=== PATIENT | female | born 1985 | race Caucasian/White ===

== ENCOUNTER 2023-02-16 08:54 | Outpatient (CLI) | payer OTHER, SELFPAY ==
[2023-02-16 09:55] LABS: Basophils Absolute Auto 0.02 K/uL (0.00-0.30); Basophils Percent Auto 0.2 % (0.0-3.0); Eosinophils Percent Auto 1.2 % (0.0-7.0); Hematocrit 44.1 % (33.0-51.0); Hemoglobin* 14.4 gm/dL (12.0-16.0); Immature Granulocytes Abs Auto 0.01 K/uL (0.00-0.30); Immature Granulocytes Pct Auto 0.1 %; Lymphocytes Absolute Auto 2.81 K/uL (0.90-2.90); Lymphocytes Percent Auto 32.8 % (20-44); Mean Corpuscular HGB Conc 33 gm/dL (32-36); Mean Corpuscular Hemoglobin 29 pg (26-34); Mean Corpuscular Volume 88 fL (80-100); Monocytes Percent Auto 8.6 % (0.0-11.0); Neutrophils Absolute Auto 4.88 K/uL (1.7-7.0); Neutrophils Percent Auto 57.1 % (42.0-72.0); Platelet Count* 329 K/uL (140-440); RDW Coefficient of Variation % 12.5 % (11.5-15.5); Red Blood Count 4.99 m/uL (4.00-5.20); White Blood Count* 8.56 K/uL (4.50-11.00)
[2023-02-16 10:22] LABS: Cholesterol* 188 mg/dL (90-199); Slide Review Reflex No; Triglycerides* 77 mg/dL (40-149)
[2023-02-16 10:23] LABS: HDL Cholesterol* 43 mg/dL (>=50); LDL Cholesterol Calculated 130 mg/dL (<100)
[2023-02-16 10:39] LABS: Vitamin D 25 Hydroxy* 41 ng/mL (30-80)
[2023-02-16 10:41] LABS: Free T4 Free Thyroxine* 1.06 ng/dL (0.70-1.85)
[2023-02-16 10:59] LABS: Ferritin* 89.8 ng/mL (6.24-137.0)
[2023-02-16 11:12] LABS: Vitamin B12* 516 pg/mL (243-894)
[2023-02-17 16:54] LABS: Thyroid Peroxidase (TPO) Ab 1.9 IU/mL (0.0-9.0)
[2023-02-17 16:56] LABS: Estradiol Premenol Female 131 pg/mL
[2023-02-17 21:07] LABS: Luteinizing Hormone, Serum 3.6 IU/L; Sex Hormone Binding Globulin 29 nmol/L (25-122)
[2023-02-17 21:31] LABS: CRP, High Sensitivity 2.3 mg/L (<=3.0)
[2023-02-17 21:50] LABS: Free T3 3.3 pg/mL (2.5-4.3)
[2023-02-17 22:00] LABS: Prolactin 5.3 ng/mL (2.8-29.2)
== END 2023-02-16 08:55 | disposition home or self-care (01) ==
DX: E63.9 Nutritional deficiency, unspecified (principal); E66.9 Obesity, unspecified; G43.909 Migraine, unspecified, not intractable, without status migrainosus; N84.1 Polyp of cervix uteri; R53.83 Other fatigue
CPT/HCPCS: 36415; 80061; 82306; 82607; 82670; 82728; 83001; 83002; 84146; 84270; 84402; 84403; 84439; 84443; 84481; 85025; 86141; 86376

== ENCOUNTER 2025-05-29 05:12 | Day surgery (SDC) | payer OTHER, SELFPAY ==
[2025-05-29] VITALS (19 sets, daily range): BP systolic 107–131; BP diastolic 55–78; PULSE 59–80; RESP 16; TEMP 36.5–37.3; O2SAT 95–100; BMI 34.9; BMI 36.3
--- OUTSIDE RECORDS SUMMARY | 2025-05-29 05:13 | XMS_ITS | Clinical Summary ---
Author Organization [facility] Address [address] [place] [id number] Care Team Providers Care Passenger Coach Driver Name Role Phone Physicians, Maria R Cristina Family Primary Care Prov ider Jeri Contreras PA-C Unavailable [phone] Allergies Active Allergy Reactions Criticality Noted Date Comments Sulfa Antibiotics Other (See Comments) 10/03/20 12 Medications levonorgestrel (MIRENA) 20 MCG/DAY IUDIndications:En counter for insertion of intrauterine contraceptive device 1 each (20 mcg) by Intrauterine route once Active magnesium 250 MG tablet Take 1 tablet by mouth daily Active Yfnroq-0-Gpxzagdi POWD Active L-Theanine 100 MG CAPS Active Probiotic Product (PROBIOTIC BLEND PO) Active Active Problems Problem Noted Date Diagnosed Date Dysplasia of cervix, low grade (DAMON 1) Overview (05/11/2023): 01/2021 NIL pap, + HR HPV 05/05/21 [place] Bx: suggestive of but not diagnostic for DAMON 1 05/07/22 NIL pap, + HR HPV (not 16/18). Plan colp bef 08/07/22 07/05/22 [place] Bx: DAMON 1, ECC: benign. Plan 1 year cotest 05/03/23 NIL pap, neg HR HPV. Plan 3 year cotest Cervical high risk HPV (human papillomavirus) te st positive Immunizations Immunization Administration Dates Next Due COVID-19 MONOVALENT 12+ (InvestingNote) 10/06/2021,05/2021,03/10/2021 Influenza Vaccine >6 months,quad, PF 07/29/2020 TDAP (Adacel,Boostrix) 11/10/2020,10/10/2014 Family History Medical History Relation Comments Heart Disease Father Hyperlipidemia Father Hypertension Father Heart Disease Maternal Grandfather Hyperlipidemia Maternal Grandfather Breast Cancer Maternal Grandmother Hyperlipidemia Maternal Grandmother Heart Disease Mother Hyperlipidemia Mother Hypertension Mother Breast Cancer Paternal Grandmother Heart Disease Paternal Grandmother Hyperlipidemia Paternal Grandmother Relation Status Comments Father Maternal Grandfather Maternal Grandmother Mother Paternal Grandmother Social History Tobacco Use Types Packs/Day Years Used Date Smoking Tobacco: Never Smokeless Tobacco: Never Tobacco Cessation:Counseling Given: Not Answered Alcohol Use Standard Drinks/Week Comments Yes 0 (1 standard drink = 0.6 oz pur e alcohol) rarely PHQ-2 Answer Date Recorded PHQ-2 Score 2 05/04/2024 Adolescent Education Answer Date Record ed Getting School Help Needed Not on file 08/05 Comments No Sex and Gender Information Value Date Recorded Sex Assigned at Female 05/02/2023 9:27 AM CDT 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 Gender Identity Female 05/02/2023 9:27 AM CDT Sexual Orientation Straight 05/02/2023 9: 27 AM CDT Last Filed Vital Signs Vital Sign Reading Time Taken Comments Blood Pressure 117/70 05/04/2024 9:07 AM CDT Pulse - - Temperature - - Respiratory Rate - - Oxygen Saturation - - Inhaled Oxygen Concentration - - Weight 94.1 kg (207 lb 6.4 oz) 05/04/2024 9:07 A M CDT Height 166.4 cm (5' 5.5) 05/04/2024 9:07 AM CDT Body Mass Index 33.99 05/04/2024 9:07 AM CDT Plan of Treatment Health Maintenance Due Date Last Done Comments ADVANCE CARE PLANNING 1985 ANNUAL REVIEW OF HM ORDERS 1985 DIABETES SCREENING 1985 HIV SCREENING 01/18/2000 HEPATITIS C SCREENING 2003 HEPATITIS B VACCINE (1 of 3 - 19+ 3-dose series) 01/18/2004 COVID-19 VACCINE ( season) 2024 10/06/2021, 03/31/2021, 03/10/2021 PHQ-2 (once per calendar year) 2024 05/04/2024, 03/22/2024, 03/22/2024, Additional history exists MAMMO SCREENING 04/03/2025 04/03/2024, 11/28/2015 YEARLY PREVENTIVE VISIT 05/04/2025 05/04/20 24, 05/03/2023, 05/07/2022 INFLUENZA VACCINE (#1) 2025 07/29/2020 HPV FOLLOW-UP 05/03/2026 05/03/2023, 05/07/2022 PAP FOLLOW-UP 05/03/2026 05/03/2023, 04/23, 02/13/2021 LIPID 02/17/2028 02/16/2023 DTAP/TDAP/TD VACCINE (3 - Td or Tdap) 11/10/2030 11/10/2020, 10/10/2014 ZOSTER VACCINE (1 of 2) 2035 PAP Discontinued 05/03/2023, 04/23, 02/13/2021 HPV VACCINE (No Doses Required) Completed MENINGITIS VACCINE Aged Out No longer eligible based on patient's age to complete this topic PNEUMOCOCCAL VACCINE: PEDIATRICS (0 to 5 YEARS) AND AT-RISK PATIENTS (6 to 49 YEARS) Aged Out No longer eligible based on patient's age to complete this topic Procedures Procedure Name Priority Date/Time Associated Diagnosis Comments MA DIAGNOSTIC BILATERAL W/ SP Routine 04/03/2024 1:49 PM CDT Breast pain, left HPV HIGH RISK TYPES DNA CERVICAL Routine 05/03/2023 9:04 AM CDT Encounter for gynecological examination without abnormal finding GYNECOLOGIC CYTOLOGY Routine 05/03/2023 9:04 AM CDT Encounter for gynecological examination without abnormal finding LIPID PANEL (EXTERNAL RESULT) Routine 02/16/2023 9:20 AM CDT from Last 3 Months or Most Recently Relevant to Health Maintenance Results * MA Diagnostic Bilateral w/Sp (04/03/2024 1:49 PM CDT) Anatomical Region Laterality Modality Breast Bilateral Mammography Impressions 04/03/2024 2:11 PM CDT IMPRESSION: BI-RADS CATEGORY: 1 - Negative. RECOMMENDED FOLLOW-UP: Routine yearly mammography beginning at age 40 or as discussed with your provider. LYDIA HOLDER MD Narrative 04/03/2024 2:11 PM CDT EXAM: MA DIAGNOSTIC BILATERAL W/ SP, US BREAST LEFT LIMITED 1-3 QUADRANTS, 04/03/2024 1:49 PM COMPARISONS: 11/28/2015 HISTORY: Pain laterally in the LEFT breast. BREAST DENSITY: The breasts are heterogeneously dense which may obscure small masses. FINDINGS: Bilateral mammography with digital breast tomosynthesis performed with a square-shaped marker in the upper outer LEFT breast at the patient's area of concern. No concerning mammographic/tomographic findings on either side. Focussed ultrasound of the upper outer quadrant of the LEFT breast was performed. No concerning findings identified. us Jeri Contreras PA-C IMG MAMMOGRAPHY ORDERABL ES Final Result * Pap thin layer screen with HPV - recommended age 30 - 65 years (05/03/2023 9:04 AM CDT) Interpretation Negative for Intraepithelial Lesion or Malignancy (NILM) 05/09/2023 8:00 AM CDT [facility] at 0800 CDT Comment Papanicolaou Test Limitations: Cervical cytology is a screening test with limited sensitivity, and regular screening is critical for cancer prevention. Pap tests are primarily effective for the diagnosis/prevent ion of squamous cell carcinoma, not adenocarcinoma or other cancers. 05/09/2023 8:00 AM CDT [facility] Specimen Adequacy Satisfactory for evaluation, endocervical/rich sformation zone component absent 05/09/2023 8:00 AM CDT [facility] Clinical Information IUD 05/09/2023 8:00 AM CDT [facility] Reflex Testing Yes regardless of result 05/09/2023 8:00 AM CDT [facility] Previous Abnormal? Yes 05/09/2023 8:00 AM CDT [facility] Previous Abnormal Diagnosis HRHPV + 05/09/2023 8:00 AM CDT [facility] Performing Labs The technical component of this testing was completed at [facility] 05/09/2023 8:00 AM CDT [facility] Brushing CERVIX UTERI STRUCTURE / Unknown Non-blood Collection / Unknown 05/03/2023 9:04 AM CDT 05/03/2023 10:17 AM CDT us Pamela BRUCE - GRIS AP Final Result [facility] [address] [facility], [address] [place] [id number], [facility] [phone] * HPV High Risk Types DNA Cervical (05/03/2023 9:04 AM CDT) Other HR HPV Negative Negative 05/10/2023 6:33 AM CDT [facility] HPV16 DNA Negative Negative 05/10/2023 6:33 AM CDT [facility] HPV18 DNA Negative Negative 05/10/2023 6:33 AM CDT [facility] FINAL DIAGNOSIS This patient's sample is negative for HPV DNA. This test was developed and its performance characteristics determined by the [facility], [facility]. It has not been cleared or approved by the FDA. The laboratory is regulated under CLIA as qualified to perform high-complexity testing. This test is used for clinical purposes. It should not be regarded as investigational or for research. METHODOLOGY: The Dom Marcie 4800 system uses automated extraction, simultaneous amplification of HPV (L1 region) and beta-globin, followed by real time detection of fluorescent labeled HPV and beta globin using specific oligonucleotide probes. The test specifically identifies types HPV 16 DNA and HPV 18 DNA while concurrently detecting the rest of the high risk types (31, 33, 35, 39, 45, 51, 52, 56, 58, 59, 66 or 68). COMMENTS: This test is not intended for use as a screening device for woman under age 30 with normal cervical cytology. Results should be correlated with cytologic and histologic findings. Close clinical followup is recommended. 05/10/2023 6:33 AM CDT [facility] Brushing CERVIX UTERI STRUCTURE / Unknown Non-blood Collection / Unknown 05/03/2023 9:04 AM CDT 05/09/2023 10:30 AM CDT us Pamela Aleman MD LAB - BLOOD ORDERABLES Final Res ult [facility] [address] [facility], [address] [id number], [facility] [phone] * (ABNORMAL) Lipid Panel (External Result) (02/16/2023 9:20 AM CDT) Cholesterol (External) 188 90 - 199 mg/dL [facility] Triglycerides (External) 77 40 - 149 mg/dL [facility] HDL Cholesterol (External) 43(A) >=50 mg/dL [facility] LDL Cholesterol Calculated (External) 130(A) <100 mg/dL [facility] Blood 02/16/2023 9:20 AM CDT Narrative [facility] - 02/16/2023 9:20 AM CDT [facility] RESULT us Provider Outside LAB - HIM EXTERNAL RESULT Final Result Performing Organization Address City/[facility]/ZIP Co de Phone Number [facility] [address] [place] [address], [facility] [phone] from Last 3 Months or Most Recently Relevant to Health Maintenance Insurance [employer] Care Teams Passenger Coach Driver Relationship Specialty Start Date End Date Physicians, Maria R Vinson. Family [address] [place] [address] PCP - General 11/24/15 Jeri Contreras, PAGuerdaC [address] [facility] [address] [place] [address] Assigned OBGYN Provider 05/15/25
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
--- NOTE | 2025-05-29 05:37 | CRLHL7_ITS ---
For Patients: As a result of the Century Cures Act, medical imaging exams and procedure reports are released immediately into your electronic medical record. You may view this report before your referring provider. If you have questions, please contact your health care provider. INDICATION: Abdominal pain and nausea COMPARISON: None TECHNIQUE: CT examination of the abdomen and pelvis was performed following the uneventful intravenous administration of 103 cc of Isovue 370. Thin section axial images were obtained from the lung bases through the pubic symphysis. Oral contrast was not administered. Please note that all CT scans at this facility use dose modulation, iterative reconstruction, and/or weight-based dosing when appropriate to reduce radiation dose to as low as reasonably achievable. FINDINGS: LUNG BASES: The lung bases as visualized appear normal.The heart size is normal at the lung bases. LIVER/BILIARY SYSTEM:The liver is normal in size and configuration. There is no focal mass and there is no intra- or extra hepatic biliary ductal dilatation.Hepatic steatosis. There is cholelithiasis. The gallbladder is distended and there may be wall thickening. Correlate with sonography. ADRENALS: Normal KIDNEYS, URETERS and BLADDER:The kidneys appear normal. No visible mass, calculus or hydronephrosis. The ureters and bladder as visualized appear normal. SPLEEN:Normal appearance. PANCREAS: Appears normal. RETROPERITONEUM and MESENTERY: There is no mass, adenopathy or aortic aneurysm. GASTROINTESTINAL SYSTEM: There is no evidence of diverticulitis, colitis, mechanical obstruction, or appendicitis. The small bowel as visualized appears normal. PELVIS: An IUD is noted but is malpositioned. The side arms are probably imbedded within the myometrium the lower uterine segment and the shank is probably imbedded in the endocervical canal. Follow-up evaluation is advised OSSEOUS STRUCTURES and ABDOMINAL WALL: There is an age-appropriate appearance of the osseous structures.No significant abdominal wall defect. OTHER: No free fluid or free air. IMPRESSION: 1. Cholelithiasis and distended gallbladder with possible wall thickening. Recommend sonography to exclude developing acute cholecystitis. 2. Malpositioned IUD as above. Please note that all CT scans at this facility use dose modulation, iterative reconstruction, and/or weight-based dosing when appropriate to reduce radiation dose to as low as reasonably achievable. Dictated by Blanco Chiu MD @ 05/29/2025 6:33:16 AM (Electronically Signed)
[2025-05-29] MEDS: ONDANSETRON 2 MG/ML inj 4 MG IVP (05:57)
[2025-05-29 06:02] LABS: Appearance Urine Cloudy (Clear)
[2025-05-29 06:11] LABS: Ur HCG Qualitative* Negative (Negative)
[2025-05-29 06:19] LABS: Hematocrit 41.0 % (33.0-51.0); Hemoglobin* 13.5 gm/dL (12.0-16.0); Immature Granulocytes Abs Auto 0.04 K/uL (0.00-0.30); Immature Granulocytes Pct Auto 0.4 %; Lymphocytes Absolute Auto 3.21 K/uL (0.90-2.90); Mean Corpuscular HGB Conc 33 gm/dL (32-36); Mean Corpuscular Hemoglobin 29 pg (26-34); Mean Corpuscular Volume 87 fL (80-100); RDW Coefficient of Variation % 12.4 % (11.5-15.5); Red Blood Count 4.69 m/uL (4.00-5.20); White Blood Count* 10.75 K/uL (4.50-11.00)
[2025-05-29 06:21] LABS: Slide Review Reflex No
[2025-05-29 06:35] LABS: Albumin* 4.0 g/dL (3.3-5.0); Chloride* 106 mmol/L (96-114); Potassium* 3.8 mmol/L (3.6-5.1); Sodium* 135 mmol/L (135-149)
[2025-05-29 06:38] LABS: Alanine Aminotransferase* 24 U/L (4-35); Alkaline Phosphatase* 88 U/L (40-150); Anion Gap 7 mEq/L (7-15); Aspartate Amino Transferase* 23 U/L (12-35); Bilirubin Total* 0.4 mg/dL (0.1-1.5); Blood Urea Nitrogen* 9 mg/dL (5-24); Calcium* 9.6 mg/dL (8.4-10.6); Carbon Dioxide* 22 mmol/L (20-32); Creatinine* 0.6 mg/dL (0.5-1.5); Est. Creatinine Clearance* 112.15; Estimated Glomerular Filt Rate 116 ml/min; Glucose* 104 mg/dL (60-115); Total Protein* 7.1 g/dL (6.0-8.3)
--- NOTE | 2025-05-29 06:55 | CRLHL7_ITS ---
For Patients: As a result of the Century Cures Act, medical imaging exams and procedure reports are released immediately into your electronic medical record. You may view this report before your referring provider. If you have questions, please contact your health care provider. Indication: Abdominal pain and nausea TECHNIQUE: Ultrasound abdomen limited. Sonographic images of the right upper quadrant were obtained using herrnig-scale and color Doppler images. Comparison: Abdomen and pelvis CT 05/29/2025 FINDINGS: Gallbladder: Cholelithiasis with nonmobile stones at the gallbladder neck. Distended gallbladder although without gallbladder wall thickening or pericholecystic fluid. Negative sonographic Winter`s sign.. Common bile duct: 4 mm. Impression: Cholelithiasis with non mobile stone at the gallbladder neck although without sonographic evidence of cholecystitis. With a non mobile stone at the gallbladder neck, HIDA scan could be considered to assess for cystic duct obstruction. Dictated by Angel Luis Paulson MD @ 05/29/2025 7:25:31 AM (Electronically Signed)
[2025-05-29] MEDS: LACTATED RINGERS 1000 ML 1,000 ML 125 ML IV ×2 (09:28→16:35)
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
[2025-05-29] MEDS: ONDANSETRON 2 MG/ML inj IVP (18:23)
[2025-05-29] MEDS: ACETAMINOPHEN 325 MG TABLET 650 MG PO (18:23)
--- NOTE | 2025-05-29 19:40 | PC.NURSE ---
End of shift-- Very pleasant and cooperative, alert and oriented patient. VSS and pt is afebrile. Pain appears well managed with Dilaudid PRN. Pt is tolerating a clear liquid diet, but did c/o nausea this evening and was given Zofran once. She was up independently and tolerated it well. and son were at bedside this evening and appear loving and supportive. Report to FRANCHESKA Narayanan.
[2025-05-30] VITALS (15 sets, daily range): BP systolic 94–133; BP diastolic 57–81; PULSE 60–89; RESP 13–20; TEMP 36.4–36.8; O2SAT 94–100
[2025-05-30] MEDS: LACTATED RINGERS 1000 ML 1,000 ML 125 ML IV ×2 (00:31→08:17)
--- NOTE | 2025-05-30 04:28 | PC.NURSE ---
Shift note: Patient is alert and oriented. Vitally stable. NPO for the night. Pain level has been moderate, rated at 3 and 4. Pt preferred recliner to bed for sleep. Refused SCD. Zofran given for nausea. Patient had adequate sleep. [place] in room.
--- NOTE | 2025-05-30 09:40 | PM.GSPN ---
Subjective Subjective Date Seen: 05/30/25 Interval history: Maria C is doing well today. She did have some pain overnight and some nausea as well as a headache. No questions about surgery today. Exam Narrative: Exam Narrative: Vital signs stable. No acute distress. Const: Vital Signs, click to edit/add: Vital Signs - 24 hr 05/29/25 10:54 05/29/25 15:00 05/29/25 15:00 Temperature 97.7 F 97.9 F Pulse Rate [Pulse Oximeter] 65 76 Respiratory Rate 16 16 16 Blood Pressure [Ri ght Arm] 113/64 120/78 Pulse Oximetry 98 99 100 Oxygen Delivery Me thod Room Air Room Air Room Air 05/29/25 15:00 05/29/25 19:00 05/29/25 22:44 Temperature 98.8 F Pulse Rate [Pulse Oximeter] 76 80 62 Respiratory Rate 16 16 16 Blood Pressure [Ri ght Arm] 122/64 Pulse Oximetry 98 Oxygen Delivery Me thod Room Air 05/29/25 22:44 05/29/25 22:44 05/30/25 02:49 Temperature 99.1 F 98.3 F Pulse Rate [Pulse Oximeter] 62 69 Respiratory Rate 16 16 16 Blood Pressure [Ri ght Arm] 108/69 111/63 Pulse Oximetry 98 98 95 Oxygen Delivery Me thod Room Air Room Air Room Air 05/30/25 08:12 Temperature 97.9 F Pulse Rate [Pulse Oximeter] 68 Respiratory Rate 16 Blood Pressure [Ri ght Arm] 113/60 Pulse Oximetry 99 Oxygen Delivery Me thod Room Air Progress Note:A&P Assessment and plan (1) Cholecystitis: Status: Acute Plan Plan for cholecystectomy today. All patient's questions answered. Likely discharge home through same-day surgery as long as there are no concerning intraoperative findings and as long as patient is doing well in recovery.
--- NOTE | 2025-05-30 09:43 | PM.GSPRC ---
Operative Note Date of procedure: 05/30/25 Pre-op diagnosis: Cholecystitis Post-op diagnosis: Same Type of Procedure: Laparoscopic cholecystectomy Indications: The patient is a 40-year-old female who presented to the emergency department with right upper quadrant pain which had been going on for approximately 1 day. Workup revealed a gallstone impacted in the gallbladder neck. She had no evidence of biliary obstruction. I recommended cholecystectomy. After discussion of risks and benefits she agreed to proceed. Procedure Description: After discussing the risks and benefits of the procedure, the patient signed informed consent.? The operative site was marked and the patient was brought to the operating room and placed on the operating table in supine position.? Care was taken to pad the patient's pressure points.?? The patient was then intubated by anesthesia.?? The operative site was then prepped and draped in the usual sterile fashion.? A time-out was then performed. Entrance to the abdomen was gained via a 5 mm Visiport in the left upper quadrant. The abdomen was insufflated and briefly surveyed for signs of injury. There was none. A 10 mm umbilical port was placed as well as 2 working ports along the right costal margin, all under direct vision. The patient was then placed in reverse Trendelenburg position with the right side up. The gallbladder fundus was grasped and retracted cephalad. A small amount of dissection was needed to free omental adhesions from the gallbladder. The gallbladder was noted to be edematous. The infundibulum was grasped. A stone was embedded in the gallbladder neck. A combination of hook cautery and blunt dissection was used to carefully dissect out the cystic duct and artery until they could clearly be seen entering the gallbladder without any intervening structures. The gallbladder was dissected off the cystic plate to achieve the critical view. Once this was achieved the cystic duct and artery were each clipped with 2 clips on the patient's side and 1 clip on the the gallbladder side and transected with the scissors. The gallbladder was then taken off of the liver bed. A small vessel encountered going into the gallbladder was clipped preemptively and divided with cautery. The gallbladder was then removed from the abdomen using an Endo-Catch bag. The gallbladder bed was surveyed for hemostasis which appeared adequate. The remaining ports were then removed and the abdomen desufflated. The umbilical port fascia was closed with 0 Vicryl. The skin was closed with absorbable subcuticular suture. Sterile dressings were then applied. Instrument sponge and needle counts were correct at the end of the case. The patient was then woken and transferred to the PACU in stable condition. The patient tolerated the procedure well. Findings: Edematous, distended gallbladder with a stone impacted in the gallbladder neck Anesthesia: GETA Surgeon: Rosario Walters MD Estimated blood loss (mL): 10 Specimen: Gallbladder Condition: stable Disposition: PACU
[2025-05-30] MEDS: BUPIVACAINE 0.25% 30 ML INJECTION (10:38)
--- NOTE | 2025-05-30 11:05 | P.ANES_ITS ---
Anesthesia Charges Start Date/Time Anesthesia Start Date: 05/30/25 Anesthesia Start Time: 09:34 Stop Date/Time Anesthesia Stop Date: 05/30/25 Anesthesia Stop Time: 10:59 Coding CPT Codes CPT Codes: ANESTH SURG UPPER ABDOMEN - 21486 ([id number]) P2 - PATIENT W/MILD SYST DISEASE, QX - ELECTRICAL MAINTENANCE ENGINEER SVC W/ MD MED DIRECTION, QK - DIRECTOR [facility] 2-4 CNCRNT ANES PROC
--- NOTE | 2025-05-30 11:05 | W.ANESCHARGE ---
Anesthesia Charges Start Date/Time Anesthesia Start Date: 05/30/25 Anesthesia Start Time: 09:34 Stop Date/Time Anesthesia Stop Date: 05/30/25 Anesthesia Stop Time: 10:59 Coding CPT Codes CPT Codes: ANESTH SURG UPPER ABDOMEN - 53689 ([id number]) P2 - PATIENT W/MILD SYST DISEASE, QX - [employer] SOFTWARE DEVELOPMENT ENGINEER SVC W/ MD MED DIRECTION, QK - DRILLING FIELD OPERATOR 2-4 CNCRNT ANES PROC
--- NOTE | 2025-05-30 11:58 | P.ANES_ITS ---
Anesthesia Charges Start Date/Time Anesthesia Start Date: 05/30/25 Anesthesia Start Time: 09:34 Stop Date/Time Anesthesia Stop Date: 05/30/25 Anesthesia Stop Time: 10:59 Coding CPT Codes CPT Codes: ANESTH SURG UPPER ABDOMEN - 02380 ([id number]) QK - REST ROOM MAID 2-4 CNCRNT ANES PROC, QX - FACTORY FOCUS TECHNICIAN SVC W/ MD MED DIRECTION, P2 - PATIENT W/MILD SYST DISEASE
--- NOTE | 2025-05-30 11:58 | W.ANESCHARGE ---
Anesthesia Charges Start Date/Time Anesthesia Start Date: 05/30/25 Anesthesia Start Time: 09:34 Stop Date/Time Anesthesia Stop Date: 05/30/25 Anesthesia Stop Time: 10:59 Coding CPT Codes CPT Codes: ANESTH SURG UPPER ABDOMEN - 75571 ([id number]) QK - TOP LIFT AND AUTOMATIC WINDOW REPAIRER 2-4 CNCRNT ANES PROC, QX - LICENSED SALES ASSISTANT SVC W/ MD MED DIRECTION, P2 - PATIENT W/MILD SYST DISEASE
--- NOTE | 2025-05-30 12:00 | PC.NURSE ---
Pt was well this morning. VSS. Abdominal pain denied. Ice was effective for pt's headache. Pt resting well in chair. at bedside. Surgical team assisted pt off floor at approximately 1000
--- NOTE | 2025-05-30 13:05 | SUR.PHASEII ---
Patient has tolerated water, juice and soda, eaten 4 pieces of toast. She was up in chair for 30 minutes and ready to go home. Pain is controlled with no additional medication given in Phase II.
== END 2025-05-30 13:13 | disposition home or self-care (01) ==
LOC: ED 10:03 → OR 10:12 → MEDSURG 10:12
PROVIDERS: Emergency Provider Emergency Medicine; Visit Provider Surgery
PROC: 0FT44ZZ Resection of Gallbladder, Percutaneous Endoscopic Approach (ICD-10-PCS; CPT 47562; principal; 2025-05-30 10:00)
DX: K80.01 Calculus of gallbladder with acute cholecystitis with obstruction (principal); R10.11 Right upper quadrant pain
CPT/HCPCS: 47562; 00790; 36415; 74177; 76705; 80053; 81001; 81025; 83690; 84703; 85025; 87086; 88304; 99285; A9270; J0330; J0665; J0690; J1100; J1171; J1885; J2250; J2405; J2704; J2710; J3010; J7030; J7120; Q9967

== ENCOUNTER 2025-10-06 16:00 | Emergency (ER) | payer OTHER, SELFPAY ==
--- OUTSIDE RECORDS SUMMARY | 2025-08-29 09:00 | XMS_ITS | Encounter Summary ---
Author Organization [facility] er Address [address] [place] [address] Care Team Providers Care Rn Perinatal Name Role Phone None, Pcp Primary Care Provider Unavailabl e Reason for Referral * Consultation (Routine) - AuthorizedSpecialtyDiagnoses / ProceduresReferred By ContactReferred To ContactSleep Medicine Diagnoses KIM (obstructive sleep apnea) Obesity hypoventilation syndrome (HCC) [place] [address] [place] [address] Phone: tel: fax: Referral IDStatusReasonStart DateExpiration DateVisits RequestedVisits [id number] Specialty Services Required TAIN WORKER Reason for Visit * ReasonCommentsConsultSleeping ProblemIssues with getting and staying a sleep SnoringFatigueExcessive Daytime SleepinessDry MouthMorning Headache * Consultation (Routine) - AuthorizedSpecialtyDiagnoses / ProceduresReferred By ContactReferred To ContactSleep Medicine Diagnoses Class 2 obesity with body mass index (BMI) of 35.0 to 35.9 in adult, unspecified obesity type, unspecified whether serious comorbidity present Zoë Campbell PA-C [address] [facility] [address] [place] [address] Phone: tel: fax: [facility] Sleep Medicine [address] [place] [address] Phone: tel: fax: Referral IDStatusReasonStart DateExpiration DateVisits RequestedVisits [id number] Specialty Services Required Encounter Details DateTypeDepartmentCare Team (Latest Contact Info)Zcssgffalxp12/06/2025 9:00 AM CSTOffice Visit [facility] Sleep Medicine [address] [place] [address] Rio Russell MD [address] [address] KIM (obstructive sleep apnea) (Primary Dx); Obesity hypoventilation syndrome (HCC) Social History Tobacco UseTypesPacks/DayYears UsedDateSmoking Tobacco: NeverSmokeless Tobacco: NeverAlcohol UseStandard Drinks/WeekCommentsYes0 (1 standard drink = 0.6 oz pure alcohol)2 a monthPHQ-2AnswerDate RecordedPHQ-9 Total Qcnwa1699/18/2025UDIT-C AnswerDate RecordedQ1: How often do you have a drink containing alcohol?Monthly or less08/29/2025Q2: How many drinks containing alcohol do you have on a typical day when you are drinking?1 or Q3: How often do you have six or more drinks on one occasion?Less than txdbamx7408/29/2025CommentsNoSex and Gender InformationValueDate RecordedSex Assigned at BirthNot on fileLegal Sex Xcfhgj2205/09/2025 8:23 AM CDTGender IdentityNot on fileSexual OrientationNot on fileOccupationIndustryJob Start DateJob End DateBusiness ownerNot on fileNot on fileNot on fileadminNot on fileNot on fileNot on filedocumented as of this encounter Last Filed Vital Signs Vital SignReadingTime TakenCommentsBlood Vdcievmm549/8108/29/2025 8:58 AM FOUNTAIN WORKER Hciim289908/29/2025 8:58 AM QDKVfpcxvnavqe56.9 ??C (98.5 ??F)08/29/2025 8:58 AM CSTRespiratory Curj693710/29/2024 8:58 AM CSTOxygen Hybwanxxbu04%08/29/2025 8:58 AM CSTInhaled Oxygen Concentration--Vzmefp638 kg (221 lb)08/29/2025 8:58 AM FOUNTAIN WORKER Nybory329.1 cm (5' 5)08/29/2025 8:58 AM CSTBody Mass Index36.7808/29/2025 8:58 AM CSTdocumented in this encounter Functional Status * BPAnswerDate of GgquwgwzvzHdvxul739/8108/29/2025 8:58 AM Sylvia Danielson MA * PulseAnswerDate of FxvyahxkdfYyxloj0863/06/2025 8:58 AM Sylvia Danielson MA * AUDIT-C ScoreAnswerDate of JuvwkrhkuuYolmmd222/06/2025 8:58 AM Sylvia Danielson MA * QuestionAnswerDate of AssessmentAuthorQ1: How often do you have a drink containing alcohol?Monthly or less08/29/2025 8:58 AM Sylvia Danielson MAQ2: How many drinks containing alcohol do you have on a typical day when you are drinking?1 or 8:58 AM Sylvia Danielson MAQ3: How often do you have six or more drinks on one occasion?Less than wcnxmaf4308/29/2025 8:58 AM Sylvia Danielson MA documented as of this encounter Progress Notes * Rio Russell MD - 08/29/2025 9:00 AM CST Subjective Patient ID: Maria C Brar is a 40 y.o. female. Chief Complaint Patient presents with Consult Sleeping Problem Issues with getting and staying a sleep Snoring Fatigue Excessive Daytime Sleepiness Dry Mouth Morning Headache HPI Maria C Brar is a 40 y.o. female who presents the [facility] upon the encouragement of Zoë NICK to evaluate for sleep disordered breathing in particular obstructivesleep apnea in the setting of socially disruptive snoring, witnessed apnea and feeling tired duringthe day. Patient reports of socially disruptive snoring, snort arousals, witnessed apnea, maintenance insomnia, hypersomnia and feeling tired during the day. She reports of dryness of mouth/throat during winter and morning cephalgia. Patient has symptoms suggestive of sleep disordered breathing in particular obstructive sleep apnea. Patient reports of having daytime sleepiness and tiredness/exhaustion. However patient is able to maintain her alertness when driving motor vehicle. Sleep schedule: Bed Time Estimate: 10:00 PM Rise Time Estimate: 5:30-6:00 AM Total sleep time: 6-8 hours #Night Time Awakenings: 1-2x times due to nocturia [place]: 16/ Insomnia characteristics: denies sleep initiation however reports sleep maintenance insomnia denies significant ineffective time in bed (increase duration of Wake After Sleep Onset) denies musculoskeletal pain that influences poor sleep denies history of anxiety and/or depression that influences poor sleep denies increased stress/worry/perseverative thought process denies poor sleep hygiene Hypersomnolence symptoms include: reports EDS and fatigue denies Motor vehicle accident or near miss due to sleepiness Narcolepsy Triad- denies Cataplexy, denies hypnagogic or hypnopompic hallucinations, denies sleep paralysis upon awakening/falling asleep Obstructive Sleep Apnea (KIM) symptoms include: Reports socially disruptive snoring on his back reports of sleep fragmentation related to respiratory events (snort arousals, laryngospasm, etc) Reports witnessed episodes of apnea reports throat/mouth dryness during winter reports morning cephalgia Sleep Related Movement Disorder symptoms include: Denies compelling motor restless at sleep onset involving bilateral lower extremities and relieved with physical activity or exertion. Parasomnias symptoms include: denies Somniloquy denies Somnambulism denies Confusional Arousals denies Dream-enactment Behaviors Problem List[1] Caffeine Exposure: 2 cups per day Alcohol Exposure: Socially STOP BAN-03/31 Sleep-related Surgical History: Tonsils intact Family Medical History for KIM: positive in her father Objective Physical Exam Visit Vitals BP 119/81 (BP Location: Right arm, Patient Position: Sitting, BP Cuff Size: Adult) Pulse 80 Temp 36.9 ??C (98.5 ??F) (Temporal) Resp 18 Ht 1.651 m (5' 5) Wt 100 kg (221 lb) SpO2 99% BMI 36.78 kg/m?? OB Status Having periods Smoking Status Never BSA 2.14 m?? Constitutional: alert & oriented, in no acute distress Eyes: PERRLA Throat: tongue midline, Tonsils;not enlarged; uvula normal; Mallampati: IV (only hard palate visible) Head: No significant retrognathia. Adequate jaw mobility with protrusion. denies temporomandibular joint pain Neck: Supple, no cervical lymphadenopathy; Neck Circumference: 14 inches Assessment/Plan Possible sleep disordered breathing in particular obstructive sleep apnea given STOP-BANG questionnaire 5-6, nonrestorative sleep, crowded airway and family history is positive for obstructive sleep apnea in her father. Tiredness/exhaustion Maintenance insomnia Hypersomnia Discussed snoring, maintenance insomnia, tiredness/exhaustion and excessive daytime sleepiness possibly in the setting of possible untreated sleep disordered breathing in particular obstructive sleepapnea. We discussed association of untreated obstructive sleep apnea with cardiovascular complicatio n including hypertension. Patient verbalized understanding. Discussed the pathophysiology, investigation and management of sleep disordered breathing. Discussed Positive Airway Pressure Therapy ,oral appliance and ENT option Discussed home sleep study test and in lab polysomnography. Patient wants to pursue in-lab polysomnography to diagnose and treat sleep disordered breathing in particular obstructive sleep apnea. Patient was strongly advised to avoid driving, operating any heavy machinery or other hazardous situation while drowsy or sleepy. Patient was counseled on the importance of driving while alert, to cloth covered helmet puller if drowsy, or nap before getting into the vehicle if sleepy. All questions were answered. Follow-up after sleep study Thank you for consulting sleep medicine at [facility]. Rio Russell MD Sleep medicine Visit was for 48 minutes and included reviewing medical records, pre and post visit documentation which involved reviewing CPAP monitoring and CPAP education. Note created with [employer]: This note/live dictation was created with voice recognition software ([employer]); therefore, it may contain grammatical errors/misspellings/other errors that went unnoticed. [1] There is no problem list on file for this patient. TAIN WORKER documented in this encounter Plan of Treatment DateTypeDepartmentCare Team (Latest Contact Info)Yzhzkskrlsw87/08/2026 3:40 PM CSTOffice Visit [facility] [address] [place] [address] Zoë Campbell PA-C [address] [facility] [address] [place] [address] 11/20/2025 8:00 AM CSTOffice Visit [facility] Sleep Medicine [facility] [phone] Rio Russell MD [address] [phone] NameTypePriorityAssociated DiagnosesOrder SchedulePolysomnographySleep Center Routine KIM (obstructive sleep apnea) Obesity hypoventilation syndrome (HCC) Expected: 08/30/2025, Expires: 08/29/2026documented as of this encounter Visit Diagnoses Diagnosis KIM (obstructive sleep apnea)- Primary Obstructive sleep apnea (adult) (pediatric) Obesity hypoventilation syndrome (HCC) Obesity hypoventilation syndrome documented in this encounter Care Teams Team MemberRelationshipSpecialtyStart DateEnd Date None, Pcp [address] [facility] [place] [address] PCP - GeneralGeneral Practice06/18/25documented as of this encounter
--- OUTSIDE RECORDS SUMMARY | 2025-09-11 16:00 | XMS_ITS | Encounter Summary ---
Author Organization [facility] er Address [address] [place] [address] Care Team Providers Care Wireless Technician Name Role Phone None, Pcp Primary Care Provider Unavailabl e Encounter Details DateTypeDepartmentCare Team (Latest Contact Info)Zmvmvpxpaer51/19/2025 4:00 PM CSTProcedure visit [facility] [place] [place] [facility] [address] [place] [address] Snoring (Primary Dx) Social History Tobacco UseTypesPacks/DayYears UsedDateSmoking Tobacco: NeverSmokeless Tobacco: NeverAlcohol UseStandard Drinks/WeekCommentsYes0 (1 standard drink = 0.6 oz pure alcohol)2 a monthPHQ-2AnswerDate RecordedPHQ-9 Total Sobxz3401/18/2025UDIT-C AnswerDate RecordedQ1: How often do you have a drink containing alcohol?Monthly or less08/29/2025Q2: How many drinks containing alcohol do you have on a typical day when you are drinking?1 or Q3: How often do you have six or more drinks on one occasion?Less than mwvzwyu9908/29/2025CommentsNoSex and Gender InformationValueDate RecordedSex Assigned at BirthNot on fileLegal Sex Vcwejt0205/09/2025 8:23 AM CDTGender IdentityNot on fileSexual OrientationNot on fileOccupationIndustryJob Start DateJob End DateBusiness ownerNot on fileNot on fileNot on fileadminNot on fileNot on fileNot on filedocumented as of this encounter Progress Notes * Rio Russell MD - 09/11/2025 4:00 PM CST Sleep study interpretation completed; see scanned documentation. ER ENGINEER documented in this encounter Plan of Treatment DateTypeDepartmentCare Team (Latest Contact Info)Qnpscpqtpde34/08/2026 3:40 PM CSTOffice Visit [facility] [address] [place] [address] Zoë Campbell PA-C [address] [facility] [place] [facility] [address] [place] [address] 11/20/2025 8:00 AM CSTOffice Visit [facility] Sleep Medicine [address] [phone] Rio Russell MD [address] [phone] documented as of this encounter Visit Diagnoses Diagnosis Snoring- Primary Other dyspnea and respiratory abnormality documented in this encounter Care Teams Team MemberRelationshipSpecialtyStart DateEnd Date None, Pcp [address] [place] [address] PCP - GeneralGeneral Practice06/18/25documented as of this encounter
--- OUTSIDE RECORDS SUMMARY | 2025-09-11 20:40 | XMS_ITS | Encounter Summary ---
Author Organization [facility] er Address [address] [place] [address] Care Team Providers Care Third Cook Name Role Phone None, Pcp Primary Care Provider Unavailabl e Reason for Visit * Consultation (Routine) - AuthorizedSpecialtyDiagnoses / ProceduresReferred By ContactReferred To ContactSleep Medicine Diagnoses KIM (obstructive sleep apnea) Obesity hypoventilation syndrome (HCC) Procedures Polysomnography Rio Russell MD [address] [address] Phone: tel: fax: Referral IDStatusReasonStart DateExpiration DateVisits RequestedVisits [id number] Specialty Services Required Encounter Details DateTypeDepartmentCare Team (Latest Contact Info)Hpfnawlnafk20/19/2025 8:40 PM CSTOffice Visit [facility] Sleep [address] [place] [address] KIM (obstructive sleep apnea); Obesity hypoventilation syndrome (HCC) Social History Tobacco UseTypesPacks/DayYears UsedDateSmoking Tobacco: NeverSmokeless Tobacco: NeverAlcohol UseStandard Drinks/WeekCommentsYes0 (1 standard drink = 0.6 oz pure alcohol)2 a monthPHQ-2AnswerDate RecordedPHQ-9 Total Zqtir1290/18/2025UDIT-C AnswerDate RecordedQ1: How often do you have a drink containing alcohol?Monthly or less08/29/2025Q2: How many drinks containing alcohol do you have on a typical day when you are drinking?1 or Q3: How often do you have six or more drinks on one occasion?Less than wfrfmjp4308/29/2025CommentsNoSex and Gender InformationValueDate RecordedSex Assigned at BirthNot on fileLegal Sex Gmfyta2305/09/2025 8:23 AM CDTGender IdentityNot on fileSexual OrientationNot on fileOccupationIndustryJob Start DateJob End DateBusiness ownerNot on fileNot on fileNot on fileadminNot on fileNot on fileNot on filedocumented as of this encounter Plan of Treatment DateTypeDepartmentCare Team (Latest Contact Info)Cvadjketpwe63/08/2026 3:40 PM CSTOffice Visit [facility] [address] [place] [address] Zoë Campbell PA-C [address] [facility] [address] [place], [place] [phone] 11/20/2025 8:00 AM CSTOffice Visit [facility] Sleep Medicine [address] [place] [phone] Rio Russell MD [address] [place] [phone] documented as of this encounter Visit Diagnoses Diagnosis KIM (obstructive sleep apnea) Obstructive sleep apnea (adult) (pediatric) Obesity hypoventilation syndrome (HCC) Obesity hypoventilation syndrome documented in this encounter Care Teams Team MemberRelationshipSpecialtyStart DateEnd Date None, Pcp [address] [facility] [place] [address] PCP - GeneralGeneral Practice06/18/25documented as of this encounter
--- OUTSIDE RECORDS SUMMARY | 2025-09-25 08:00 | XMS_ITS | Encounter Summary ---
Author Organization [facility] er Address [address] [place] [address] Care Team Providers Care Solder Technician Name Role Phone None, Pcp Primary Care Provider Unavailabl e Reason for Visit * ReasonCommentsFollow-upSleep StudyPSG results Encounter Details DateTypeDepartmentCare Team (Latest Contact Info)Sjchklufbsk50/03/2025 8:00 AM CSTOffice Visit [facility] Sleep Medicine [address] [place] [address] [place] [address] [place] [phone] KIM (obstructive sleep apnea) (Primary Dx) Social History Tobacco UseTypesPacks/DayYears UsedDateSmoking Tobacco: NeverSmokeless Tobacco: Never Tobacco Cessation:Counseling Given: Not Answered Alcohol UseStandard Drinks/WeekCommentsYes0 (1 standard drink = 0.6 oz pure alcohol)2 a monthPHQ-2AnswerDate RecordedPHQ-9 Total Hsmmi2806/18/2025UDIT-C AnswerDate RecordedQ1: How often do you have a drink containing alcohol?Monthly or less08/29/2025Q2: How many drinks containing alcohol do you have on a typical day when you are drinking?1 or Q3: How often do you have six or more drinks on one occasion?Less than wpjiwqr5908/29/2025CommentsNoSex and Gender InformationValueDate RecordedSex Assigned at BirthNot on fileLegal Sex Ofjval1605/09/2025 8:23 AM CDTGender IdentityNot on fileSexual OrientationNot on fileOccupationIndustryJob Start DateJob End DateBusiness ownerNot on fileNot on fileNot on fileadminNot on fileNot on fileNot on filedocumented as of this encounter Last Filed Vital Signs Vital SignReadingTime TakenCommentsBlood Ztaxzfcr112/86/12/2024 7:59 AM BRUSHER MACHINE Ajxvs044409/25/2025 7:59 AM ODYGbrvavjpqbs97.9 ??C (98.4 ??F)09/25/2025 7:59 AM CSTRespiratory Czna550611/26/2024 7:59 AM CSTOxygen Hqnnwiympk837%09/25/2025 7:59 AM CSTInhaled Oxygen Concentration--Gukmrw269 kg (220 lb 7.4 oz)09/25/2025 7:59 AM XTBBwauzh113.1 cm (5' 5)09/25/2025 7:59 AM CSTBody Mass Index36.6909/25/2025 7:59 AM CSTdocumented in this encounter Functional Status * BPAnswerDate of IcsojxybpgYbmcss832/8609/25/2025 7:59 AM Sylvia Danielson MA * PulseAnswerDate of PnbilatfllHrgdrd6633/03/2025 7:59 AM Sylvia Danielson MA documented as of this encounter Progress Notes * Rio Russell MD - 09/25/2025 8:00 AM CST Subjective Patient ID: Maria C Brar is a 40 y.o. female. Chief Complaint Patient presents with Follow-up Sleep Study PSG results HPI Patient is a 40 y.o. female who presents to [facility] sleep medicine for discussion ofrecent sleep study results. Patient was initially seen for [facility] 08/[facility]/2025 to evaluate for sleep disordered breathing in particular obstructive sleep apnea. Patient had in-lab polysomnography on 09/11/2025 and found to have upper airway resistance syndromewith RDI 6.4 events per hour, AHI 4.5 events per hour without hypoxemia with a cumulative time under 89% oxygen saturation was 0.20 minutes. There have been no significant interval medical changes since her last sleep medicine assessment. Problem List[1] Objective Physical Exam Noncontributory Summary of diagnostic study dated : Patient had in-lab polysomnography on 09/11/2025 and found to have upper airway resistance syndrome with RDI 6.4 events per hour, AHI 4.5 events per hour without hypoxemia with a cumulative time under 89% oxygen saturation was 0.20 minutes. Assessment/Plan KMI Mild upper airway resistance syndrome with RDI 6.4 events per hour. Tiredness/exhaustion Maintenance insomnia Hypersomnia Obesity with a BMI of 36.69 Patient has a mild upper airway resistance syndrome with RDI 6.4 events per hour which is considered as a mild obstructive sleep apnea. Treatment of mild obstructive sleep apnea is optional based on burden of suffering. Given patient has a burden of suffering patient wants to try PAP therapy. Treatment Recommendations: 1. to treat KIM, recommend autotitrate CPAP set from range 5-15 cm H2O with nasal nova mask. 2. use CPAP nightly ideally for the entire duration in sleep but no less than 4 hours each evening 3. refrain from operating machinery or driving a motor vehicle if experiencing problematic fatigue or excessive sleepiness 4. will assist patient in identifying appropriate durable medical equipment provider to acquire CPAP and supplies 5. follow up sleep medicine clinic in 6-8 weeks to assess autotitrate CPAP efficacy and compliance in the management of KIM Obstructive Sleep Apnea Treatment Goals: Remove socially disruptive snoring. Loud snoring may be of such severity that it has a negative impact upon the integrity of sleep of those who sleep nearby. Resolve sleep fragmentation attributed to regular and frequent obstructive apneas (i.e. breath holding spells) with subsequent improvement in daytime alertness, attentiveness, and wakefulness. Modify Health Risks for those conditions associated with Obstructive Sleep Apnea. This condition has been associated with increases in the relative risk of: High Blood Pressure Coronary Artery Disease Cardiac Arrhythmias, such as Atrial Fibrillation Metabolic Syndrome and Diabetes Mellitus To modify the increased relative risk for these conditions attributed to Obstructive Sleep Apnea, regular use of CPAP is important with a goal of reducing the Apnea/Hypopnea Index (AHI) to less than 10 events/hour (and ideally to less than 5 events/hour). Do not hesitate to ask your Sleep Medicine p rovider if you have any questions or need additional clarification. [1] There is no problem list on file for this patient. HER MACHINE documented in this encounter Plan of Treatment DateTypeDepartmentCare Team (Latest Contact Info)Xdktvsdsujf20/08/2026 3:40 PM CSTOffice Visit [facility] [address] [place] [address] Zoë Campbell PA-C [address] [facility] [address] [place], [place] [phone] 11/20/2025 8:00 AM CSTOffice Visit [facility] Sleep Medicine [address] [address] Rio Russell MD [address] [phone] documented as of this encounter Visit Diagnoses Diagnosis KIM (obstructive sleep apnea)- Primary Obstructive sleep apnea (adult) (pediatric) documented in this encounter Care Teams Team MemberRelationshipSpecialtyStart DateEnd Date None, Pcp [address] [place] [phone] PCP - GeneralGeneral Practice06/18/25documented as of this encounter
--- OUTSIDE RECORDS SUMMARY | 2025-09-27 08:15 | XMS_ITS | Encounter Summary ---
Author Organization [facility] er Address [address] [place] [address] Care Team Providers Care Dermatology Physician Name Role Phone None, Pcp Primary Care Provider Unavailabl e Encounter Details DateTypeDepartmentCare Team (Latest Contact Info)Coqlneeumcq98/05/2025 8:15 AM CSTLab NW Lab [address] [place] [address] Class 2 obesity with body mass index (BMI) of 35.0 to 35.9 in adult, unspecified obesity type, unspecified whether serious comorbidity present Social History Tobacco UseTypesPacks/DayYears UsedDateSmoking Tobacco: NeverSmokeless Tobacco: NeverAlcohol UseStandard Drinks/WeekCommentsYes0 (1 standard drink = 0.6 oz pure alcohol)2 a monthPHQ-2AnswerDate RecordedPHQ-9 Total Tbrnb3688/18/2025UDIT-C AnswerDate RecordedQ1: How often do you have a drink containing alcohol?Monthly or less08/29/2025Q2: How many drinks containing alcohol do you have on a typical day when you are drinking?1 or Q3: How often do you have six or more drinks on one occasion?Less than qajhchy2008/29/2025CommentsNoSex and Gender InformationValueDate RecordedSex Assigned at BirthNot on fileLegal Sex Uacmde6505/09/2025 8:23 AM CDTGender IdentityNot on fileSexual OrientationNot on fileOccupationIndustryJob Start DateJob End DateBusiness ownerNot on fileNot on fileNot on fileadminNot on fileNot on fileNot on filedocumented as of this encounter Plan of Treatment DateTypeDepartmentCare Team (Latest Contact Info)Cbhfhkwumfi23/08/2026 3:40 PM CSTOffice Visit [facility] [address] [place] [address] Zoë Campbell PA-C [address] [facility] [address] [place] [address] 11/20/2025 8:00 AM CSTOffice Visit [facility] Sleep Medicine [address] [address] Rio Russell MD [address] [address] documented as of this encounter Procedures Procedure NamePriorityDate/TimeAssociated DiagnosisCommentsHEMOGLOBIN V6BPlcvyjv 09/27/2025 8:38 AM GUN PROFILER Class 2 obesity with body mass index (BMI) of 35.0 to 35.9 in adult, unspecified obesity type, unspecified whether serious comorbidity present documented in this encounter Results * Hemoglobin A1c (09/27/2025 8:38 AM GUN PROFILER)ComponentValueRef RangeTest Method Analysis TimePerformed AtPathologist SignatureHemoglobin A1C5.34.0 - 5.6 % A1C 09/27/2025 4:04 PM [facility]ATORYComment: Reference Range 4.0-5.6% is for non- adults >=18 yrs <5.6% Non-Diabetic 5.7-6.4% ??Increased risk of Diabetes >=6.5% Indicative of Diabetes <7.0% ADA goal for glycemic control Methodology may not detect all hemoglobin variants which can affect A1c results. Method certified by National Glycohemoglobin Standardization Program. Specimen (Source)Anatomical Location / LateralityCollection Method / Volume Collection TimeReceived TimeBlood (Blood, Venous)09/27/2025 8:38 AM GUN PROFILER 09/27/2025 12:23 PM GUN PROFILER Narrative Authorizing ProviderResult TypeResult StatusStephanie A Citronowicz PA-CLAB BLOOD ORDERABLESFinal ResultPerforming OrganizationAddressCity/State/ZIP Code Phone Number [facility] [address] [place] [address] documented in this encounter Visit Diagnoses Diagnosis Class 2 obesity with body mass index (BMI) of 35.0 to 35.9 in adult, unspecified obesity type, unspecified whether serious comorbidity present documented in this encounter Care Teams Team MemberRelationshipSpecialtyStart DateEnd Date None, Pcp [address] [place] [address] PCP - GeneralGeneral Practice06/18/25documented as of this encounter
--- OUTSIDE RECORDS SUMMARY | 2025-10-06 16:02 | XMS_ITS | Clinical Summary ---
Author Organization [facility] er Address [address] [place] [address] Care Team Providers Care Personal Shopper Name Role Phone None, Pcp Primary Care Provider Unavailabl e Allergies Active AllergyReactionsCriticalityNoted DateCommentsSulfa AntibioticsAnaphylaxis High06/18/2025 Medications MedicationSigDispense QuantityRefillsLast FilledStart DateEnd DateStatus levonorgestrel (MIRENA) 20 MCG/DAY IUD Indications:Contraceptive Therapy1 Intra Uterine Device (20 mcg total) by Intrauterine route 1 (one) time Placed in ctive HYDROcodone-acetaminophen (NORCO) 5-325 MG per tablet 5Active Active Problems No known active problems Encounters DateTypeDepartmentCare HwjuDktpkovgvic77/05/2025 8:15 AM CSTLab [facility] Lab [address] [place] [address] Class 2 obesity with body mass index (BMI) of 35.0 to 35.9 in adult, unspecified obesity type, unspecified whether serious comorbidity avrsshp7409/25/2025 8:00 AM CSTOffice Visit [facility] Sleep Medicine [address] [address] Rio Russell MD KIM (obstructive sleep apnea) (Primary Dx)09/11/2025 8:40 PM CSTOffice Visit [facility] [address] [place] [id number] KIM (obstructive sleep apnea); Obesity hypoventilation syndrome (HCC)09/11/2025 4:00 PM CSTProcedure visit [facility] [address] [place] [address] [place] [address] Snoring (Primary Dx)08/29/2025 9:00 AM CSTOffice Visit [facility] Sleep Medicine [address] [address] Rio Russell MD KIM (obstructive sleep apnea) (Primary Dx); Obesity hypoventilation syndrome (HCC)07/25/2025 11:49 AM CDT - 07/25/2025 11:59 PM CDTHospital Encounter [facility] Mamm[facility] [address] [place] [address] Discharge Disposition: Home or Self Care07/18/2025 1:00 PM CDTOffice Visit [facility] [address] [place] [address] Von Roldan MD Primary osteoarthritis of left hip (Primary Dx)07/15/2025 11:47 AM CDT - 07/15/2025 11:59 PM CDTHospital Encounter [facility] [address] [place] [address] Discharge Disposition: Home or Self Care07/11/2025 1:40 PM CDTConsult [facility] [address] [place] [address] Zoë Campbell PA-C Class 2 obesity with body mass index (BMI) of 35.0 to 35.9 in adult, unspecified obesity type, unspecified whether serious comorbidity present (Primary Dx)from Last 3 Months Immunizations ImmunizationAdministration DatesNext DueInfluenza 6mo-64yrs Quad Preservative Free IM07/29/2020Tdap11/10/2020,10/10/2014 Family History Medical HistoryRelationCommentsHeart diseaseFatherCardiomyopathyMaternal Grandfatherpassed at 59Breast cancerMaternal Grandmotherpassed at 82AnemiaMother HyperlipidemiaMotherAneurysmPaternal Grandfatherpassed at 59Breast cancer Paternal GrandmotherLung cancerPaternal GrandmotherRelationStatusCommentsFather AliveMaternal GrandfatherDeceasedMaternal GrandmotherDeceasedMotherAlivePaternal GrandfatherDeceasedPaternal GrandmotherDeceased Social History Tobacco UseTypesPacks/DayYears UsedDateSmoking Tobacco: NeverSmokeless Tobacco: Never Tobacco Cessation:Counseling Given: Not Answered Alcohol UseStandard Drinks/WeekCommentsYes0 (1 standard drink = 0.6 oz pure alcohol)2 a monthPHQ-2AnswerDate RecordedPHQ-9 Total Tjkll5283/18/2025UDIT-C AnswerDate RecordedQ1: How often do you have a drink containing alcohol?Monthly or less08/29/2025Q2: How many drinks containing alcohol do you have on a typical day when you are drinking?1 or Q3: How often do you have six or more drinks on one occasion?Less than vjnyxfz8008/29/2025CommentsNoSex and Gender InformationValueDate RecordedSex Assigned at BirthNot on fileLegal Sex Uccdso2405/09/2025 8:23 AM CDTGender IdentityNot on fileSexual OrientationNot on fileOccupationIndustryJob Start DateJob End DateBusiness ownerNot on fileNot on fileNot on fileadminNot on fileNot on fileNot on file Last Filed Vital Signs Vital SignReadingTime TakenCommentsBlood Xeqzmbij063/8609/25/2025 7:59 AM LOCKS INSPECTOR Qvxix893909/25/2025 7:59 AM XBJTwlboczyxgs13.9 ??C (98.4 ??F)09/25/2025 7:59 AM CSTRespiratory Svye427111/26/2024 7:59 AM CSTOxygen Ltisprrpih683%09/25/2025 7:59 AM CSTInhaled Oxygen Concentration--Bqhshz854 kg (220 lb 7.4 oz)09/25/2025 7:59 AM JENZoqmub626.1 cm (5' 5)09/25/2025 7:59 AM CSTBody Mass Index36.6909/25/2025 7:59 AM LOCKS INSPECTOR Plan of Treatment DateTypeDepartmentCare Team (Latest Contact Info)Wjvysotoags19/08/2026 3:40 PM CSTOffice Visit [facility] [address] [place] [address] Zoë Campbell PA-C [address] [facility] [address] [place] [address] 11/20/2025 8:00 AM CSTOffice Visit [facility] Sleep Medicine [address] [id number] Rio Russell MD [address] [facility] [address] [place] [address] Health MaintenanceDue DateLast DoneCommentsPap Smear1985COVID-19 Vaccine ( season), 03/31/2021, 03/10/2021Influenza Vaccine (#1)/03/20208916Hvusvzvta65/02/202610/11/2024, 04/03/2024, 04/03/2024, Additional history existsDTaP,Tdap,and Td Vaccines (3 - Td or Tdap) /, 10/10/2014HPV VaccinesAged OutNo longer eligible based on patient's age to complete this topicPneumococcal Vaccine: Pediatrics (0 to 5 Years) and At-Risk Patients (6 to 49 Years)Aged OutNo longer eligible based on patient's age to complete this topic Procedures Procedure NamePriorityDate/TimeAssociated DiagnosisCommentsHEMOGLOBIN T7MPxpelck 09/27/2025 8:38 AM LOCKS INSPECTOR Class 2 obesity with body mass index (BMI) of 35.0 to 35.9 in adult, unspecified obesity type, unspecified whether serious comorbidity present MAMMOGRAM BREAST SCREENING TOMOSYNTHESIS CIOMZOVTLGbhahjz92/02/2025 1:00 PM CDT Breast cancer screening by mammogram XR HIP 2-3 VIEWS LEFT WITH SAUDDHOslqo22/22/2025 12:01 PM CDT Left hip pain from Last 3 Months Results * Hemoglobin A1c (09/27/2025 8:38 AM LOCKS INSPECTOR)ComponentValueRef RangeTest Method Analysis TimePerformed AtPathologist SignatureHemoglobin A1C5.34.0 - 5.6 % A1C 09/27/2025 4:04 PM CSTWADENA CLINIC LABORATORYComment: Reference Range 4.0-5.6% is for non- adults >=18 yrs <5.6% Non-Diabetic 5.7-6.4% ??Increased risk of Diabetes >=6.5% Indicative of Diabetes <7.0% ADA goal for glycemic control Methodology may not detect all hemoglobin variants which can affect A1c results. Method certified by National Glycohemoglobin Standardization Program. Specimen (Source)Anatomical Location / LateralityCollection Method / Volume Collection TimeReceived TimeBlood (Blood, Venous)09/27/2025 8:38 AM LOCKS INSPECTOR 09/27/2025 12:23 PM LOCKS INSPECTOR Narrative Authorizing ProviderResult TypeResult StatusStephanaiden Campbell PA-CLASpenser BLOOD ORDERABLESFinal ResultPerforming OrganizationAddressCity/State/ZIP Code Phone Number [facility] [address] [place] [phone] * Mammogram breast screening tomosynthesis bilateral (07/25/2025 1:00 PM CDT) Anatomical RegionLateralityModalityBreastBilateralMammographySpecimen (Source) Anatomical Location / LateralityCollection Method / VolumeCollection Time Received Time Impressions 07/25/2025 1:36 PM CDT BILATERAL BREASTS Negative; no evidence of malignancy. Routine follow-up is recommended in 1 year, or at next clinically-appropriate interval. ASSESSMENT: BI-RADS 1: Final Overall Assessment: Negative Breast Assessment: 1-Negative Breast composition: c-The breasts are heterogeneously dense, which may obscure small masses Recommendation: 1000-Routine Screening Mammogram in 1 year CAD REVIEW: Current study was evaluated with a Computer Aided Detection (CAD) system. Narrative 07/25/2025 1:36 PM CDT EXAM DESCRIPTION: MAMMOGRAM BREAST SCREENING TOMOSYNTHESIS BILATERAL INDICATION: 40 y/o ??U. ??Screen. COMPARISON: Comparison made to prior exam(s). FINDINGS: Routine bilateral combination 2D/DBT screening examination including CC and MLO projections. The breasts are heterogeneously dense, which may obscure small masses. No significant masses, calcifications or other abnormalities are seen. Procedure Note John Dang MD - 07/25/2025 EXAM DESCRIPTION: MAMMOGRAM BREAST SCREENING TOMOSYNTHESIS BILATERAL INDICATION: 40 y/o U. Screen. COMPARISON: Comparison made to prior exam(s). FINDINGS: Routine bilateral combination 2D/DBT screening examination including CCand MLO projections. The breasts are heterogeneously dense, which may obscure small masses. No significant masses, calcifications or other abnormalities are seen. IMPRESSION: BILATERAL BREASTS Negative; no evidence of malignancy. Routine follow-up is recommended in 1year, or at next clinically-appropriate interval. ASSESSMENT: BI-RADS 1: Final Overall Assessment: Negative Breast Assessment: 1-Negative Breast composition: c-The breasts are heterogeneously dense, which mayobscure small masses Recommendation: 1000-Routine Screening Mammogram in 1 year CAD REVIEW: Current study was evaluated with a Computer Aided Detection (CAD)system. Authorizing ProviderResult TypeResult StatusPealexandra Rojas APRN CNPPREETHIADVENTHEALTH WINTER GARDEN PROCEDURESFinal Result * X-ray hip 2-3 views left with pelvis (07/15/2025 12:01 PM CDT)Anatomical RegionLateralityModalityLower Extremities, Hip, PelvisLeftDigital Radiography Specimen (Source)Anatomical Location / LateralityCollection Method / Volume Collection TimeReceived Time Impressions 07/15/2025 12:50 PM CDT Moderate osteoarthritis at the left hip. Narrative 07/15/2025 12:50 PM CDT INDICATION: left hip pain COMPARISON: None FINDINGS: There is moderate joint space loss and marginal spurring at the left hip. ??Pincer type acetabular morphology and prominent superolateral osteophyte on the femoral head. ??No fracture or aggressive lesion. ??Incidental IUD in the pelvis and scattered phleboliths. Procedure Note Esthela Mcdonald MD - 07/15/2025 INDICATION: left hip pain COMPARISON: None FINDINGS: There is moderate joint space loss and marginal spurring at the left hip.Pincer type acetabular morphology and prominent superolateral osteophyteon the femoral head. No fracture or aggressive lesion. Incidental IUD inthe pelvis and scattered phleboliths. IMPRESSION: Moderate osteoarthritis at the left hip. Authorizing ProviderResult TypeResult StatusMajack Roldan MDIMG XR PROCEDURES Final Result from Last 3 Months Insurance Care Teams Team MemberRelationshipSpecialtyStart DateEnd Date None, Pcp [address] [facility] [place] [address] PCP - GeneralGeneral Practice06/18/25
--- OUTSIDE RECORDS SUMMARY | 2025-10-06 16:02 | XMS_ITS | Clinical Summary ---
Author Organization [facility] Address [address] [place] [address] Care Team Providers Care Cost Coordinator Name Role Phone Physicians, Maria R Cristina Family Primary Care Prov ider Jeri Mathias PA-C Unavailable [phone] Allergies Active AllergyReactionsCriticalityNoted DateCommentsSulfa AntibioticsOther (See Comments)10/03/2012 Medications MedicationSigDispense QuantityRefillsLast FilledStart DateEnd DateStatus levonorgestrel (MIRENA) 20 MCG/DAY IUD Indications:Encounter for insertion of intrauterine contraceptive device1 each (20 mcg) by Intrauterine route onceActive magnesium 250 MG tablet Take 1 tablet by mouth dailyActive Cndxty-9-Zgyrtshb POWD Active L-Theanine 100 MG CAPS Active Probiotic Product (PROBIOTIC BLEND PO) Active Active Problems ProblemNoted DateDiagnosed DateDysplasia of cervix, low grade (DAMON 1)01/22/2021 Overview (05/11/2023): 01/2021 NIL pap, + HR HPV 05/05/21 [place] Bx: suggestive of but not diagnostic for DAMON 1 05/07/22 NIL pap, + HR HPV (not 16/18). Plan colp bef 08/07/22 07/05/22 [place] Bx: DAMON 1, ECC: benign. Plan 1 year cotest 05/03/23 NIL pap, neg HR HPV. Plan 3 year cotest Cervical high risk HPV (human papillomavirus) test positive Immunizations ImmunizationAdministration DatesNext DueCOVID-19 MONOVALENT 12+ (Pfizer) 10/06/2021,03/31/2021,03/10/2021Influenza Vaccine >6 months,quad, PF07/29/2020 TDAP (Adacel,Boostrix)11/10/2020,10/10/2014 Family History Medical HistoryRelationCommentsHeart DiseaseFatherHyperlipidemiaFather HypertensionFatherHeart DiseaseMaternal GrandfatherHyperlipidemiaMaternal GrandfatherBreast CancerMaternal GrandmotherHyperlipidemiaMaternal Grandmother Heart DiseaseMotherHyperlipidemiaMotherHypertensionMotherBreast CancerPaternal GrandmotherHeart DiseasePaternal GrandmotherHyperlipidemiaPaternal Grandmother RelationStatusCommentsFatherMaternal GrandfatherMaternal GrandmotherMother Paternal Grandmother Social History Tobacco UseTypesPacks/DayYears UsedDateSmoking Tobacco: NeverSmokeless Tobacco: Never Tobacco Cessation:Counseling Given: Not Answered Alcohol UseStandard Drinks/WeekCommentsYes0 (1 standard drink = 0.6 oz pure alcohol)rarelyPHQ-2AnswerDate RecordedPHQ-2 Hlfof9604Adolescent Education AnswerDate RecordedGetting School Help NeededNot on file3 CommentsNoSex and Gender InformationValueDate RecordedSex Assigned at Cwhbrc7905/02/2023 9:27 AM CDTLegal CnlXytidw41/04/2012 3:37 AM CSTGender Identity Oihrbk6805/02/2023 9:27 AM CDTSexual EfrnbfanwmoTrfcfxye88/10/2023 9:27 AM CDT Last Filed Vital Signs Vital SignReadingTime TakenCommentsBlood Qhpelqmo271/7007 9:07 AM CDT Pulse--Temperature--Respiratory Rate--Oxygen Saturation--Inhaled Oxygen Concentration--Sthdbh59.1 kg (207 lb 6.4 oz)05/04/2024 9:07 AM OGAVxvfon498.4 cm (5' 5.5)05/04/2024 9:07 AM CDTBody Mass Index33.9905/04/2024 9:07 AM CDT Plan of Treatment Health MaintenanceDue DateLast DoneCommentsADVANCE CARE FHPNUCCX1985ANNUAL REVIEW OF HM RQQSQS29 1985DIABETES ANTGMDHTZ1985HIV DPEDQYUEG47/27/2000 HEPATITIS C PQVSGUBYS63/27/2003HEPATITIS B VACCINE (1 of 3 - 19+ 3-dose series) 01/18/2004PHQ-2 (once per calendar year)/09/2024, 03/22/2024, 03/22/2024, Additional history existsMAMMO GLPMWPRQK68/08/2024, 11/28/2015YEARLY PREVENTIVE VISIT/09/2024, 05/03/2023, 05/07/2022 COVID-19 VACCINE ( season)/, 03/31/2021, 03/10/2021INFLUENZA VACCINE (#1)/03/2020HPV FOLLOW-UP05/03/2026 05/03/2023, 2PAP FOLLOW-UP6005/03/2023, 05/07/2022, 02/13/2021 LIPID02/16/118224/3DTAP/TDAP/TD VACCINE (3 - Td or Tdap)11/10/2030 11/10/2020, 10/10/2014ZOSTER VACCINE (1 of 2)2035PAPDiscontinued 05/03/2023, 05/07/2022, 02/13/2021HPV VACCINE (No Doses Required)Completed MENINGITIS VACCINEAged OutNo longer eligible based on patient's age to complete this topicPNEUMOCOCCAL VACCINE: PEDIATRICS (0 to 5 YEARS) AND AT-RISK PATIENTS (6 to 49 YEARS)Aged OutNo longer eligible based on patient's age to complete this topic Procedures Procedure NamePriorityDate/TimeAssociated DiagnosisCommentsMA DIAGNOSTIC BILATERAL W/ VOWNGunabgv66/11/2024 1:49 PM CDT Breast pain, left HPV HIGH RISK TYPES DNA QDMUUSRQCuolyhm48/11/2023 9:04 AM CDT Encounter for gynecological examination without abnormal finding GYNECOLOGIC QUZQQXSSRsjhftq51/11/2023 9:04 AM CDT Encounter for gynecological examination without abnormal finding LIPID PANEL (EXTERNAL RESULT)Hqsycub8202/16/2023 9:20 AM CDT from Last 3 Months or Most Recently Relevant to Health Maintenance Results * MA Diagnostic Bilateral w/Sp (04/03/2024 1:49 PM CDT)Anatomical Region LateralityModalityBreastBilateralMammographySpecimen (Source)Anatomical Location / LateralityCollection Method / VolumeCollection TimeReceived Time Impressions 04/03/2024 2:11 PM CDT IMPRESSION: BI-RADS [...] breast was performed. No concerning findings identified. Authorizing ProviderResult TypeResult StatusKathryn Nadine LeungCoshocton Regional Medical Center MAMMOGRAPHY ORDERABLESFinal Result * Pap thin layer screen with HPV - recommended age 30 - 65 years (05/03/2023 9:04 AM CDT)ComponentValueRef RangeTest MethodAnalysis TimePerformed At Pathologist SignatureInterpretationNegative for Intraepithelial Lesion or Malignancy (NILM)05/09/2023 8:00 AM CDTUM [facility] LABS at 0800 CDTComment Papanicolaou Test Limitations: Cervical cytology is a screening test with limited sensitivity, and regular screening is critical for cancer prevention. Pap tests are primarily effective for the diagnosis/prevention of squamous cell carcinoma, not adenocarcinoma or other cancers. 05/09/2023 8:00 AM CDTUM SPECIALTY LABSSpecimen AdequacySatisfactory for evaluation, endocervical/transformation zone component wipkij3205/09/2023 8:00 AM CDTUM SPECIALTY LABSClinical GisnqbwcjqeEEI47/17/2023 8:00 AM CDTUM SPECIALTY LABSReflex TestingYes regardless of humffi1505/09/2023 8:00 AM CDTUM SPECIALTY LABSPrevious Abnormal?Yes05/09/2023 8:00 AM CDTUM SPECIALTY LABSPrevious Abnormal DiagnosisHRHPV +05/09/2023 8:00 AM CDTUM SPECIALTY LABSPerforming Labs The technical component of this testing was completed at [facility] Shqfvaztac44/17/2023 8:00 AM CDTUM SPECIALTY LABSSpecimen (Source)Anatomical Location / LateralityCollection Method / VolumeCollection TimeReceived TimeBrushingCERVIX UTERI STRUCTURE / UnknownNon- blood Collection / Qmrdwlz3305/03/2023 9:04 AM CDT05/03/2023 10:17 AM CDT Narrative Authorizing ProviderResult TypeResult StatusDajanina LANDRY APFinal ResultPerforming OrganizationAddressCity/State/ZIP CodePhone Number [facility] [address] [phone] [phone] * HPV High Risk Types DNA Cervical (05/03/2023 9:04 AM CDT)ComponentValueRef RangeTest MethodAnalysis TimePerformed AtPathologist SignatureOther HR HPV GnwqqanbLyqwxjib42/18/2023 6:33 AM CDTUM MOLECULAR FQVMPPGSLUREAT47 DNA OyizdmzcJwzgijxm20/18/2023 6:33 AM CDTUM MOLECULAR QUFRNBHYONDLQQ74 DNA XtgybrdtSwhqmcir46/18/2023 6:33 AM CDTUM MOLECULAR DIAGNOSTICSFINAL DIAGNOSIS This patient's sample is negative for HPV DNA. This test was developed and its performance characteristics determined by the [facility]. It has not been cleared or approved by the FDA.The laboratory is regulated under CLIA as qualified [...] specifically identifies types HPV 16 DNA and H PV 18 DNA while concurrently detecting the rest of the high risk types (31, 33, 35, 39, 45, 51, 52,56, 58, 59, 66 or 68). COMMENTS: This test is not intended for use as a screening device for woman under age 30 with normal cervical cytology. Results should be correlated with cytologic and histologic findings. Close clinical followup is recommended. 05/10/2023 6:33 AM CDTUM MOLECULAR DIAGNOSTICSSpecimen (Source)Anatomical Location / LateralityCollection Method / VolumeCollection TimeReceived Time BrushingCERVIX UTERI STRUCTURE / UnknownNon-blood Collection / Ylvijpu1505/03/2023 9:04 AM CDT05/09/2023 10:30 AM CDT Narrative Authorizing ProviderResult TypeResult StatusPamela Aleman MDLAB - BLOOD ORDERABLESFinal ResultPerforming OrganizationAddressCity/State/ZIP CodePhone Number [facility]LEC[facility] DI[facility]NOST[facility] [address] [phone] [phone] * (ABNORMAL) Lipid Panel (External Result) (02/16/2023 9:20 AM CDT)Component ValueRef RangeTest MethodAnalysis TimePerformed AtPathologist Signature Cholesterol (External)18981 - 199 mg/dLM HEALTH FAIRVIEW RIDGES HOSPITALTriglycerides (External)7740 - 149 mg/dLM HEALTH FAIRVIEW RIDGES HOSPITALHDL Cholesterol (External)43(A) >=50 mg/dLM HEALTH FAIRVIEW RIDGES HOSPITALLDL Cholesterol Calculated (External)130(A)<100 mg/dLESSENTIA HEALTHpecunc health lenoirn (Source)Anatomical Location / Laterality Collection Method / VolumeCollection TimeReceived GyhiNiofy90/26/2023 9:20 AM CDT Narrative [facility] - 02/16/2023 9:20 AM CDT [facility] LAB RESULT Authorizing ProviderResult TypeResult StatusProvider OutsideLAB - HIM EXTERNAL RESULTFinal ResultPerforming OrganizationAddressCity/State/ZIP CodePhone Number [facility] [address] [id number], [facility] [phone] from Last 3 Months or Most Recently Relevant to Health Maintenance Insurance * Guarantor: Maria C Brar TypeRelation to PatientDate of PhoneBilling AddressPersonal/TgdvveQlyj1985 [address] [place] [address] * Guarantor: Maria C Brar TypeRelation to PatientDate of PhoneBilling AddressPersonal/MqocdyHrwe1985 [address] [place] [address] Care Teams Team MemberRelationshipSpecialtyStart DateEnd Date Physicians, Maria R Vinson. Family [address] [id number] PCP - General11/24/15 Jeri Mathias PA-C [address] [facility] [address] [place] [address] Assigned OBGYN Provider05/15/25
--- NOTE | 2025-10-06 16:11 | US_ITS ---
Patient: MANNY HICKS Facility:?[facility] Patient ID:?[id number] Site Patient ID:?[id number]. Site :?1985 Study:?US-Extremity Left venous-10/06/2025 5:40:15 PM Ordering Physician:?STACY SAMUELS Final Report: INDICATION: Leg pain and swelling. TECHNIQUE: Ultrasound venous duplex lower left extremity. Compression venous exam was performed using herring-scale, color Doppler, and spectral Doppler analysis. COMPARISON: None. FINDINGS: Deep veins: Sonographic imaging demonstrates the left common femoral, deep femoral, superficial femoral, popliteal, posterior tibial and the contralateral right common femoral veins to be fully compressible with normal color Doppler blood flow. The peroneal veins were not visualized. Superficial veins: Greater saphenous vein is fully compressible. No popliteal cyst. IMPRESSION: Nonvisualization of the left peroneal veins. Otherwise, no sonographic evidence of deep vein thrombosis. Dictated by Preston Teague MD @ 10/06/2025 5:44:03 PM Signed by:?Preston Teague MD @10/06/2025 5:44:03 PM (Electronic Signature)
[2025-10-06 16:13] VITALS: BP 140/80; PULSE 90; RESP 16; TEMP 36.6; O2SAT 98; BMI 40.4
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
== END 2025-10-06 18:08 | disposition home or self-care (01) ==
LOC: ED 18:07
PROVIDERS: Emergency Provider Family Medicine
DX: M79.605 Pain in left leg (principal)
CPT/HCPCS: 93971; 99283; 99284